=== PATIENT | female | born 1975 | race Caucasian/White ===

== ENCOUNTER → 2018-04-06 16:13 | Outpatient (CLI) | payer BC, SELFPAY ==
--- NOTE | 2018-04-06 16:15 | MM_ITS ---
MM Dig screening mamm BI w/CAD ORDERING PHYSICIAN : Gerald Snow MD PATIENT AGE: 42 years GENDER: Female COMPARISON: March 2000 January INDICATION: ITS.REASON: Routine Screening Mammogram no hormones. No new complaints. Family history. Maternal grandmother breast cancer in her 50s TECHNIQUE: Standard CC and MLO images were obtained. R2 CAD reviewed. Additional axillary cc views both breast included FINDINGS: Moderately density breast with fibroglandular elements most evident towards upper-outer quadrant. Mild asymmetry. No suspicious nor dominant mass nor suspicious calcifications either breast. CAD computer review highlights no areas of concern either RIGHT BREAST:. The fibroglandular elements are most evident towards the deep upper outer quadrant but appear to be similar to previous studies with no significant new findings. LEFT BREAST:Stable appearance with no new findings IMPRESSION: Stable bilateral mammogram . No new areas of concern. Bilateral follow-up in one year recommended BI-RADS Category: 1 Negative RECOMMENDED FOLLOW-UP: 1YR 1 YEAR FOLLOW-UP (A letter has been sent to the patient regarding results of the study.)
== END ==
PROVIDERS: Family Provider Family Medicine; PCP Family Medicine; Visit Provider Nurse Practitioner Obstetrics & Gynecology
DX: Z12.31 Encounter for screening mammogram for malignant neoplasm of breast (principal)
CPT/HCPCS: 77067

== ENCOUNTER → 2019-05-28 15:31 | Outpatient (CLI) | payer BC, SELFPAY ==
--- NOTE | 2019-05-28 15:32 | MM_ITS ---
PROCEDURE: MM DIG SCREENING MAMM BI W/CAD CLINICAL INDICATION: Routine Screening Mammogram There is a history of breast cancer patient's paternal grand mother. COMPARISON: [facility] DIG MAMM-SCREEN RONNIE from 02/10/2016 [facility] DIG MAMM-SCREEN RONNIE W/CAD from 03/29/2017 [facility] MM Dig screening mamm BI w/CAD from 04/06/2018 TECHNIQUE: Standard CC and MLO images were obtained. R2 CAD reviewed. FINDINGS: Moderate diffuse fibroglandular densities are seen throughout both breasts. There is benign-appearing calcification left breast and a mole marker left breast. There is no new or suspicious lesion in either breast and no suspicious microcalcifications. IMPRESSION: Moderate diffuse breast density with no suspicious lesions seen BI-RAD Category: 2 Benign Finding(s) FOLLOW-UP: 1YR 1 Year Follow-up (A letter has been sent to the patient regarding results of the study.) Dictated by: Dr. Luis Tomas MD 05/29/2019 13:[address] Luis Tomas MD in [place] 05/29/2019 13:43
== END ==
PROVIDERS: PCP Family Medicine; Visit Provider Nurse Practitioner Obstetrics & Gynecology
DX: Z12.31 Encounter for screening mammogram for malignant neoplasm of breast (principal)
CPT/HCPCS: 77067

== ENCOUNTER → 2020-03-31 13:30 | Outpatient (POV) | payer BC, SELFPAY | PROVIDERS: Visit Provider Dermatology | DX: Z00.00 Encounter for general adult medical examination without abnormal findings (principal) ==

== ENCOUNTER → 2020-08-18 15:53 | Outpatient (CLI) | payer OTHER, BC, SELFPAY ==
--- NOTE | 2020-08-18 15:53 | MM_ITS ---
PROCEDURE: MM DIG SCREENING MAMM BI W/CAD Digital Breast Tomosynthesis Included CLINICAL INDICATION: screening xmg There is a history of breast cancer patient's maternal grandmother. The patient currently is on control pills. COMPARISON: MG [facility] DIG MAMM-SCREEN RONNIE W/CAD from 03/29/2017 MG [facility] MM Dig screening mamm BI w/CAD from 04/06/2018 MG MM DIG SCREENING MAMM BI W/CAD from 05/28/2019 TECHNIQUE: Standard CC and MLO images and 3D Tomosynthesis was obtained. R2 CAD reviewed. FINDINGS: Moderate diffuse fibroglandular densities are seen throughout both breasts. There is a mole marker on each breast. There is a benign-appearing calcification left breast. There is a somewhat suspicious asymmetric density deep within the right breast at the 12 o'clock position with slightly ill-defined borders. This was not seen on the most recent examination. Recommend the patient return for spot compression views and ultrasound examination for better evaluation. IMPRESSION: Moderate diffuse breast density with asymmetric somewhat suspicious nodular lesion right breast BI-RAD Category: 0 Need Additional Imaging Evaluation FOLLOW-UP: IMM Immediate Follow-up Recommended (A letter has been sent to the patient regarding results of the study.) Dictated by: Dr. Luis Tomas MD 08/19/2020 11:04 Dr. Luis Tomas MD in [place] 08/19/2020 11:04
== END ==
PROVIDERS: PCP Family Medicine; Visit Provider Nurse Practitioner Obstetrics & Gynecology
DX: Z12.31 Encounter for screening mammogram for malignant neoplasm of breast (principal)
CPT/HCPCS: 77063; 77067

== ENCOUNTER → 2020-09-02 13:05 | Outpatient (CLI) | payer OTHER, BC, SELFPAY ==
--- NOTE | 2020-09-02 13:06 | MM_ITS ---
PROCEDURE: MM DIG MAMM DX UNILAT RT CAD Digital Breast Tomosynthesis Included CLINICAL INDICATION: Abnormal Mammogram,density COMPARISON: MG [facility] MM Dig screening mamm BI w/CAD from 04/06/2018 MG MM DIG SCREENING MAMM BI W/CAD from 05/28/2019 MG MM DIG SCREENING MAMM BI W/CAD from 08/18/2020 US US BREAST RT COMPLETE from 09/02/2020 TECHNIQUE: Spot-compression MLO and CC views were obtained along with a 90 degree lateral view FINDINGS: The additional views and in particular the spot CC view lessen concern this lesion. It appears to almost completely press out on the spot CC view and appears less prominent on the view and 90 degree lateral view. Ultrasound performed same date shows a hypoechoic cystic-appearing lesion corresponding in size and location 12 o'clock position showing a small amount of internal debris and or fluid. IMPRESSION: Problem solving views and ultrasound exam lessening concern with findings suggesting a complex cyst. Recommend the patient return for six-month follow-up right mammogram and ultrasound to evaluate for interval stability and or resolution. BI-RAD Category: 3 Probably Benign Finding Short Term Follow-up FOLLOW-UP: 6M 6Month Follow-up (A letter has been sent to the patient regarding results of the study.) Dictated by: Dr. Luis Tomas MD 09/08/2020 09:42 Dr. Luis Tomas MD in [place] 09/08/2020 09:42
--- NOTE | 2020-09-02 14:05 | US_ITS ---
PROCEDURE: US BREAST RT COMPLETE CLINICAL INDICATION: ABNORMAL SCREENING COMPARISON: MG MM DIG SCREENING MAMM BI W/CAD from 08/18/2020 MG MM DIG MAMM DX UNILAT RT CAD from 09/02/2020 FINDINGS: There is a 5 mm cyst in the 12 o'clock region of the right breast corresponding to the mammographic abnormality noted on the screening mammogram. There may be some internal debris. IMPRESSION: 5 mm right breast cyst. Please see mammogram report from the same day for BI-RADS category and recommendation. Dictated by: Jeffery Apodaca MD 09/08/2020 10:38 Jeffery Apodaca MD in [place] 09/08/2020 10:38
== END ==
PROVIDERS: PCP Family Medicine; Visit Provider Nurse Practitioner Obstetrics & Gynecology
DX: R92.8 Other abnormal and inconclusive findings on diagnostic imaging of breast (principal)
CPT/HCPCS: 76641; 77061; 77065; G0279

== ENCOUNTER → 2021-03-12 12:58 | Outpatient (CLI) | payer OTHER, BC, SELFPAY ==
--- NOTE | 2021-03-12 13:06 | MM_ITS ---
PROCEDURE: MM DIG MAMM DX UNILAT RT CAD Digital Breast Tomosynthesis Included CLINICAL INDICATION: 6 MONTH FOLLOW UP ON RIGHT BREAST COMPARISON: MG MM DIG SCREENING MAMM BI W/CAD from 05/28/2019 MG MM DIG SCREENING MAMM BI W/CAD from 08/18/2020 MG MM DIG MAMM DX UNILAT RT CAD from 09/02/2020 US US BREAST RT COMPLETE from 09/02/2020 TECHNIQUE: Standard CC and MLO images and 3D Tomosynthesis was obtained. R2 CAD reviewed. FINDINGS: The breasts are heterogeneously dense which may obscure small masses. Previously noted of increased density in the posterior 1/3 of the right breast centrally as seen on the CC view is no longer apparent. No malignant appearing mass or malignant-appearing microcalcification. No asymmetric densities or architectural disc torsion or skin thickening. IMPRESSION: No evidence of malignancy BI-RAD Category: 1 Negative FOLLOW-UP: Recommend resume screening mammogram August 2021 (A letter has been sent to the patient regarding results of the study.) Dictated by: Jeffery Apodaca MD 03/25/2021 11:39 Jeffery Apodaca MD in [place] 03/25/2021 11:39
== END ==
PROVIDERS: PCP Family Medicine; Visit Provider Nurse Practitioner Obstetrics & Gynecology
DX: R92.8 Other abnormal and inconclusive findings on diagnostic imaging of breast (principal)
CPT/HCPCS: 77061; 77065; G0279

== ENCOUNTER 2021-09-18 15:06 | Emergency (ER) | payer BC, SELFPAY ==
[2021-09-18 15:30] VITALS: BP 148/90; PULSE 64; RESP 19; TEMP 37; O2SAT 98; BMI 28.4
--- NOTE | 2021-09-18 15:46 | HMH.EDUTC ---
[facility] [place] Clinical Impression: Muscle spasm Disposition: Home, Self-Care Condition on Discharge: Good Instructions: Cyclobenzaprine, DI for Muscle Spasm Additional Instructions: *Ibuprofen jacob 6 hours with meal as needed for pain/inflammation if you can take it *Not additional anti-inflammatory like motrin, aleve, advil with the above amount of ibuprofen. You can still take Tylenol every 4 hours as needed if you need something else for pain *Ice 20 minutes every 2 hours for the first 48 hours after the initial injury followed by moist heat every 20 minutes 3-4 times a day to affected area *Muscle relaxer every 8 hours as needed for muscle spasms but remember, it WILL cause drowsiness You cannot take it and drive, operate machinery or care for small children. *Keep this area active, no movement leads to more stiffness, However take it easy and avoid heavy lifting pushing or pulling *Follow up with you family doctor if no improvement for further treatment Return if needed Straight to ER if any life threatening symptoms Prescriptions: Cyclobenzaprine HCl [Flexeril 10mg tablet] 10 mg PO Q8HP PRN #15 tab PRN Reason: Muscle Spasm Transmission Status: Pending to [id number] methylPREDNISolone [Medrol 4mg tab] 4 mg PO DIRECTED #21 tab Transmission Status: Pending to [id number] Referrals: Derrick Orr MD [Primary Care Provider] - As needed Time of Disposition: 15:53 Medical Decision Making - Raffi Inquiry Pt receiving controlled substance: No Raffi was queried for this patient: No Vital Signs: 09/18/21 15:30 Temperature 98.6 F Temperature Source Oral Pulse Rate [Right Brachial] 64 Respiratory Rate 19 Blood Pressure [Right Arm] 148/90 H Blood Pressure Mean [Right Arm] 109 Blood Pressure Source [Right Arm] Automatic Cuff Blood Pressure Position [Right Arm] Sitting 02 Sat by Pulse Oximetry 98 Oxygen Delivery Method Room Air [facility] [place] HPI - General Stated complaint: Muscle Spasms Time Seen by Provider: 09/18/21 15:46 Mode of Arrival: Ambulatory Source of Information: Patient Limitations: No Limitations Description of Symptoms (Recalled from Triage Doc. by RN): PATIENT C/O MUSCLE SPASMS TO UPPER BACK BETWEEN SHOULDER BLADES X 3 DAYS HEENT Symptoms (Recalled from RN notes): No Resp Symptoms (Recalled from RN notes): No Skin Symptoms (Recalled from RN notes): No MS Symptoms (Recalled from RN notes): Yes Functional Status (Recalled from RN notes): WNL - History of Present Illness Provider Complaint: Patient states that she was lifting and moving some furniture a couple days ago cleaning at home when she thinks she may have over done it and pulled something in her upper back States that for the last 3 days she has been having muscle spasm between her shoulder blades but moreso in her right shoulder blade and when it spasms States that right side is tender to the touch and feels tight like a muscle spasm States that she has had them before and feels like it did then - Related Data Home Medications Medication Instructions Recorded Confirmed Nebivolol HCl [Bystolic] 2.5 mg PO DAILY 09/18/21 09/18/21 Previous Rx's Medication Instructions Recorded Cyclobenzaprine HCl [Flexeril 10mg 10 mg PO Q8HP PRN #15 tab 09/18/21 tablet] methylPREDNISolone [Medrol 4mg 4 mg PO DIRECTED #21 tab 09/18/21 tab] Allergies Allergy/AdvReac Type Severity Reaction Status Date / Time adhesive tape Allergy Verified 09/18/21 15:46 loratadine [From Claritin] Allergy Verified 09/18/21 15:46 Penicillins Allergy Verified 09/18/21 15:46 - Worker's Comp Is this a Worker's Comp case?: No [facility] History - Hepatitis A Screen Drug use history?: No High risk sexual behaviors?: No History of sexually transmitted infection?: No Currently employed?: No Childcare worker?: No Do you have indoor plumbing?: Yes Do you have electricity?: Yes Attestation statement:: This patient has
[2021-09-18 15:55] VITALS: BP 148/90; PULSE 64; RESP 19; TEMP 37; O2SAT 98
== END 2021-09-18 16:01 | disposition home or self-care (01) ==
PROVIDERS: Emergency Provider Nurse Practitioner; PCP Family Medicine
DX: M62.830 Muscle spasm of back (principal)
CPT/HCPCS: 99212; G0463

== ENCOUNTER → 2022-03-23 12:34 | Outpatient (CLI) | payer BC, SELFPAY ==
--- NOTE | 2022-03-23 12:35 | MM_ITS ---
PROCEDURE INFORMATION: Exam: MG Bilateral Screening 3D Mammography Exam date and time: 03/23/2022 12:53 PM Age: 46 years old Clinical indication: Screening. Her maternal grandmother had breast cancer. TECHNIQUE: Imaging protocol: Bilateral Screening tomosynthesis and 2D mammography including computer-aided detection (CAD) when performed. COMPARISON: 1. MG MM DIG MAMM DX UNILAT RT CAD 03/12/2021 1:26 PM 2. MG MM DIG MAMM DX UNILAT RT CAD 09/02/2020 1:27 PM 3. MG MM DIG SCREENING MAMM BI W/CAD 08/18/2020 3:57 PM 4. MG MM DIG SCREENING MAMM BI W/CAD 05/28/2019 3:42 PM FINDINGS: MAMMOGRAPHY: Breast composition: The breasts are heterogeneously dense, which may obscure small masses. Mass: None. Architectural distortion: None. Calcifications: No suspicious calcifications. Asymmetric density: None. Skin thickening: None. Axillary adenopathy: None. IMPRESSION: No mammographic evidence of malignancy. Annual screening is recommended unless otherwise clinically indicated. ASSESSMENT: BI-RADS Category 1: Negative
== END ==
PROVIDERS: PCP Family Medicine; Visit Provider Nurse Practitioner Obstetrics & Gynecology
DX: Z12.31 Encounter for screening mammogram for malignant neoplasm of breast (principal)
CPT/HCPCS: 77063; 77067

== ENCOUNTER 2022-06-07 01:38 | Emergency (ER) | payer BC, SELFPAY ==
[2022-06-07 01:40] VITALS: BP 144/82; PULSE 59; RESP 17; TEMP 36.5; O2SAT 98; BMI 26.2
[2022-06-07 01:51] LABS: Microscopic, Urine URINE MICROSCOPIC (MICROSCOPIC)
[2022-06-07 01:57] LABS: Appearance,Urine CLEAR (Clear); Bilirubin,Urine Negative (Negative); Blood, Urine Negative (Negative); Color,Urine YELLOW (Yellow); Glucose,Urine (UA) Negative (Negative); Ketones,Urine Negative (Negative); Leukocyte Esterase,Urine Negative (Negative); Nitrate,Urine Negative (Negative); Protein,Urine Negative (Negative); Specific Gravity, Urine >= 1.030 (1.005-1.030); Urine Pregnancy, HCG Qual. Negative (Negative); Urobilinogen,Urine 0.2 EU/dl (0.2)
[2022-06-07 02:21] LABS: Bacteria,Urine 1+ /lpf
--- NOTE | 2022-06-07 02:22 | HMH.EDUROGF ---
Discharge Plan Disposition Patient Disposition: Home, Self-Care Prescriptions Prescriptions: New levofloxacin 500 mg tablet 500 mg PO DAILY Qty: 7 0RF phenazopyridine [Pyridium] 200 mg tablet 200 mg PO TID Qty: 7 0RF No Action nebivolol 5 MG tablet 2.5 mg PO DAILY Referrals Follow up/Referrals: Derrick Orr MD [Primary Care Provider] - See instructions Clinical Impressions Clinical Impression: Urethritis Instructions Patient Instructions: DI for Urinary Tract Infection (UTI) Discharge ED Provider: Jose William Female Urogenital HPI General Chief complaint: Urogenital-Female Stated complaint: urgency,burning,frequency with urination Time Seen by Provider: 06/07/22 02:22 Mode of Arrival: Ambulatory Source of Information: Patient and Medical Record Limitations: No Limitations Description of Symptoms (Recalled from ER Triage Doc. by RN): Pt c/o urinary frequency, urgency, and burning. States the symtoms begcan @ 2145 (06/06). Denies any gross heamturia. Denies any significant hx of UTI's. 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 History of Present Illness HPI Narrative: urinary sx started this pm - no vag d/c - no dibetes Complaint: dysuria Onset (ago): hour(s) Radiation: suprapubic Severity: moderate Duration: intermittent Urinary Symptoms: dysuria and urgency Associated symptoms: denies other symptoms Related Data Home Medications Medication Instructions Recorded Confirmed nebivolol 5 mg tablet 2.5 mg PO DAILY IRREGULAR HEARTBEAT 09/18/21 06/07/22 Previous Rx's Medication Instructions Recorded levofloxacin 500 mg tablet 500 mg PO DAILY #7 tabs 06/07/22 phenazopyridine 200 mg tablet 200 mg PO TID #7 tabs 06/07/22 (Pyridium) Allergies Allergy/AdvReac Type Severity Reaction Status Date / Time adhesive tape Allergy Verified 09/18/21 15:46 loratadine [From Claritin] Allergy Verified 09/18/21 15:46 Penicillins Allergy Verified 09/18/21 15:46 [facility] Disclaimer: The information contained in this section may have been updated after the patient was seen, as this information can be updated by other users. Social History Smoking Status: Never smoker alcohol intake: current substance use type: denies use current occupational status: employed Travel in the last 8 weeks: None household members: spouse and children housing: house ROS Obtained: Yes All systems reviewed & no additional complaints except as documented Physical Exam General General appearance: alert Head Head exam: normocephalic Eye Eye exam: Present PERRL and EOMI ENT ENT exam: Present mucous membranes moist Neck Neck exam: Present trachea midline Respiratory Respiratory exam: Absent respiratory distress Cardiovascular Cardiovascular exam: Present regular rate Abdominal Exam Abdominal exam: Present soft Extremities Exam Extremities exam: Present full ROM Neurological Exam Neurological exam: Present alert, oriented X3 and CN II-XII intact Psychiatric Psychiatric exam: Present normal affect Skin Skin exam: Absent rash Medical Decision Making Medical Records Medical records reviewed: Yes I reviewed the patient's medical records. Raffi Inquiry Pt receiving controlled substance: No Vital Signs: 06/07/22 01:40 Temperature 97.7 F Temperature Source Oral Pulse Rate [Right] 59 L Respiratory Rate 17 Blood Pressure [Right Arm] 144/82 H Blood Pressure Mean [Right Arm] 102 Blood Pressure Source [Right Arm] Automatic Cuff 02 Sat by Pulse Oximetry 98 Oxygen Delivery Method Room Air Lab Data Lab results reviewed: Yes I reviewed the patient's lab results. Lab Results 06/07/22 01:47: Urine Color Yellow, Urine Appearance Clear, Urine pH 6.0, Ur Specific [place] >= 1.030, Urine Protein Negative, Urine Glucose (UA) Negative, Urine Ketones Negative, Urine Blood Negative, Urine Nitrate Negative, Urine Bilirubin Negative, Urine Urobilinogen 0.2, Ur Leukocyte Esterase Negative, Urine
[2022-06-07 02:32] VITALS: BP 128/73; PULSE 60; RESP 18; TEMP 36.7; O2SAT 99
== END 2022-06-07 02:44 | disposition home or self-care (01) ==
PROVIDERS: Emergency Provider Emergency Medicine; PCP Family Medicine
DX: N34.2 Other urethritis (principal); Z79.899 Other long term (current) drug therapy; Z88.0 Allergy status to penicillin; Z88.8 Allergy status to other drugs, medicaments and biological substances; Z91.048 Other nonmedicinal substance allergy status
CPT/HCPCS: 81001; 81025; 87086; 99283

== ENCOUNTER → 2023-04-13 12:52 | Outpatient (CLI) | payer BC, SELFPAY ==
--- NOTE | 2023-04-13 12:53 | MM_ITS ---
PROCEDURE INFORMATION: Exam: MG Bilateral Screening 3D Mammography Exam date and time: 04/13/2023 1:07 PM Age: 47 years old Clinical indication: Screening examination TECHNIQUE: Imaging protocol: Bilateral Screening tomosynthesis and 2D mammography including computer-aided detection (CAD) when performed. COMPARISON: 1. MG MM DIG SCREENING MAMM BI W/CAD 03/23/2022 12:53 PM 2. MG MM DIG MAMM DX UNILAT RT CAD 03/12/2021 1:26 PM FINDINGS: MAMMOGRAPHY: Breast composition: There are scattered areas of fibroglandular density. Mass: None. Architectural distortion: None. Calcifications: No suspicious calcifications. Asymmetric density: None. Skin thickening: None. Axillary adenopathy: None. IMPRESSION: No mammographic evidence of malignancy. Annual screening is recommended unless otherwise clinically indicated. ASSESSMENT: BI-RADS Category 1: Negative
== END ==
PROVIDERS: PCP Family Medicine; Visit Provider Nurse Practitioner Obstetrics & Gynecology
DX: Z12.31 Encounter for screening mammogram for malignant neoplasm of breast (principal)
CPT/HCPCS: 77063; 77067

== ENCOUNTER 2024-05-06 13:52 | Outpatient (CLI) | payer BC, SELFPAY ==
--- NOTE | 2024-05-06 13:59 | MM_ITS ---
PROCEDURE INFORMATION: Exam: MG Bilateral Screening 3D Mammography Exam date and time: 05/06/2024 2:01 PM Age: 49 years old Clinical indication: Screening examination. TECHNIQUE: Imaging protocol: Bilateral Screening tomosynthesis and 2D mammography including computer-aided detection (CAD) when performed. COMPARISON: 1. MG MM DIG SCREENING MAMM BI W/CAD 04/13/2023 1:07 PM 2. MG MM DIG SCREENING MAMM BI W/CAD 03/23/2022 12:53 PM FINDINGS: MAMMOGRAPHY: Breast composition: There are scattered areas of fibroglandular density. Mass: None. Architectural distortion: None. Calcifications: No suspicious calcifications. Asymmetric density: None. Skin thickening: None. Axillary adenopathy: None. IMPRESSION: No mammographic evidence of malignancy. Annual screening is recommended unless otherwise clinically indicated. ASSESSMENT: BI-RADS Category 1: Negative.
== END 2024-05-06 23:59 | disposition home or self-care (01) ==
LOC: RAD 13:53
PROVIDERS: PCP Family Medicine; Visit Provider Nurse Practitioner Obstetrics & Gynecology
DX: Z12.31 Encounter for screening mammogram for malignant neoplasm of breast (principal)
CPT/HCPCS: 77063; 77067

== ENCOUNTER 2024-12-02 16:16 | Outpatient (CLI) | payer BC, SELFPAY ==
--- NOTE | 2024-12-02 | XR_ITS ---
FINAL REPORT CLINICAL HISTORY: ACUTE LEFT ANKLE PAIN states left ankle pain for months, not improving FINDINGS: AP, oblique, and lateral views of the left ankle were obtained. There is no prior exam for comparison. There is no fracture or dislocation. The ankle mortise is intact. Soft tissues are unremarkable. IMPRESSION: No acute osseous abnormality of the left ankle. Reviewed, Interpreted and Dictated by Charleen Navarrete MD Transcribed by Yelena Lake Authenticated and [facility]
== END 2024-12-02 23:59 | disposition home or self-care (01) ==
LOC: RAD 16:17
PROVIDERS: PCP Family Medicine; Visit Provider Family Medicine
DX: M25.572 Pain in left ankle and joints of left foot (principal)
CPT/HCPCS: 73610